=== PATIENT | male | born 1965 | race Caucasian/White ===

== ENCOUNTER 2016-11-26 06:36 | Emergency (ER) | payer MEDICARE, MEDICAID ==
[~2016-11-26] VITALS: Ht 182.9 cm; Wt 108.0 kg
[~2016-11-26 06:36] MED LIST: ALPR0.2582 PO; AMIT25TA9 PO; QUET25TA PO; SEROQUEL; VIC GT; XANAX
[2016-11-26] MEDS ORDERED: MORPHINE SULFATE 4 MG/ML CPJ (NOT FOR IM USE) IV ONE ×2 (07:15→09:15)
[2016-11-26] MEDS ORDERED: FAMOTIDINE 20MG/2ML VIAL IV ONE (07:15)
[2016-11-26] MEDS ORDERED: DIPHENHYDRAMINE 50MG/ML VIAL IV ONE (07:15)
[2016-11-26] MEDS ORDERED: ONDANSETRON HCL 4MG/2ML VIAL IV ONE (07:15)
[2016-11-26] MEDS ORDERED: SODIUM CHLORIDE 0.9% 1,000 ML IV ONE (07:15)
[2016-11-26 07:44] LABS: HEMATOCRIT. 39.5 % (42.0-52.0); HEMOGLOBIN. 13.1 g/dL (14.0-18.0); MEAN CORPUSCULAR HEMOGLOBIN 28.6 pg (28.0-32.0); MEAN CORPUSCULAR VOLUME 86.5 fL (80.0-94.0); PLATELET 414 x1000/uL (130-400); RED BLOOD CELL COUNT 4.57 mill/uL (4.7-6.1); RED CELL DISTRIBUTION WIDTH 15.5 % (11.6-14.6)
[2016-11-26 07:59] LABS: CARBON DIOXIDE 27 mEq/L (21-32); CHLORIDE 105 mEq/L (98-107)
[2016-11-26 08:05] LABS: PLATELET ESTIMATE SLIGHTLY INCREASED
[2016-11-26 08:23] LABS: CLARITY URINE CLEAR (CLEAR); COLOR URINE DARK YELLOW (YELLOW); GLUCOSE URINE NEGATIVE (NEGATIVE); KETONES URINE TRACE (NEGATIVE); LEUKOCYTE ESTERASE URINE TRACE (NEGATIVE); NITRITE URINE NEGATIVE (NEGATIVE); OCCULT BLOOD URINE NEGATIVE (NEGATIVE); PH URINE 5.5 (4.5-8.0); PROTEIN URINE TRACE (NEGATIVE); SPECIFIC GRAVITY URINE 1.017 (1.005-1.030)
[2016-11-26] MEDS ORDERED: DICYCLOMINE HCL 20MG TABLET PO SCH (09:15)
[2016-11-26] MEDS ORDERED: TETANUS, DIPHTHERIA, PERTUSSIS VAC/PF 0.5ML (>7YR OLD) IM ONE (09:30)
[2016-11-26] MEDS ORDERED: LIDOCAINE HCL 2%/EPINEPHRINE/PF 10 ML VIAL INFIL ONE (09:30)
[2016-11-26 10:15] VITALS: BP 144/88
== END 2016-11-26 13:10 | disposition home or self-care (01) ==
LOC: ER 07:12
DX: S01.81XA Laceration without foreign body of other part of head, initial encounter (principal); S02.82XA Fracture of other specified skull and facial bones, left side, initial encounter for closed fracture; R10.32 Left lower quadrant pain; R39.15 Urgency of urination; I10 Essential (primary) hypertension; Z90.81 Acquired absence of spleen; Y04.0XXA Assault by unarmed brawl or fight, initial encounter; Y93.89 Activity, other specified; Y92.89 Other specified places as the place of occurrence of the external cause; Y99.8 Other external cause status
CPT/HCPCS: 12013; 36415; 70450; 70486; 74176; 80053; 81001; 85007; 85027; 87086; 90471; 90715; 96361; 96374; 96375; 99285; C1893; J1200; J2270; J2405; J3490; J7030

== ENCOUNTER 2017-12-12 21:21 | Emergency (ER) | payer MEDICARE, MEDICAID ==
[~2017-12-12] VITALS: Ht 180.3 cm; Wt 82.0 kg
[~2017-12-12 21:21] MED LIST changes: +ALPR0.25 PO; -ALPR0.2582 PO; +AMLO10TA4 PO; +CLON0.1T PO; +METO-539 PO
[2017-12-12] MEDS ORDERED: KETOROLAC 30MG/ML VIAL IV STA (22:19)
[2017-12-12 23:11] LABS: BASOPHILS % 0.8 % (0.0-2.0); EOSINOPHILS % 0.5 % (0.0-5.0); HEMATOCRIT. 40.3 % (42.0-52.0); HEMOGLOBIN. 13.6 g/dL (14.0-18.0); LYMPHOCYTES % 23.7 % (20.0-50.0); MEAN CORPUSCULAR HEMOGLOBIN 29.7 pg (28.0-32.0); MEAN PLATELET VOLUME 9.3 fl (7.4-10.4); MONOCYTES % 9.2 % (2.0-8.0); NEUTROPHILS % 65.8 % (40.0-76.0); PLATELET 362 x1000/uL (130-400); RED BLOOD CELL COUNT 4.58 mill/uL (4.7-6.1); RED CELL DISTRIBUTION WIDTH 14.9 % (11.6-14.6)
[2017-12-12 23:17] LABS: CHLORIDE 106 mEq/L (98-107); INR 1.1; PROTHROMBIN TIME 11.1 sec (9.4-11.6)
[2017-12-12 23:21] LABS: ETHANOL BLOOD < 10 mg/dL
[2017-12-13] MEDS ORDERED: DIPHENHYDRAMINE 50MG/ML VIAL ONE (00:59)
[2017-12-13] MEDS ORDERED: DIPHENHYDRAMINE 50MG CAPSULE PO ONE (01:15)
[2017-12-13] MEDS ORDERED: DIPHENHYDRAMINE 50MG/ML VIAL IV ONE (01:30)
[2017-12-13 02:57] VITALS: BP 128/67
== END 2017-12-13 03:12 | disposition home or self-care (01) ==
LOC: ER 22:29 → CANBEDREQ 12-13 04:03
DX: R51 Headache (principal); R53.1 Weakness; R42 Dizziness and giddiness; I10 Essential (primary) hypertension; Z86.73 Personal history of transient ischemic attack (TIA), and cerebral infarction without residual deficits
CPT/HCPCS: 36415; 70450; 71045; 80053; 84443; 84484; 85025; 85610; 93005; 96374; 96375; 99285; G0482; J1200; J1885

== ENCOUNTER 2018-01-05 20:10 | Emergency (ER) | payer MEDICARE, MEDICAID ==
[~2018-01-05] VITALS: Ht 182.9 cm; Wt 91.0 kg
[2018-01-05] MEDS ORDERED: IOHEXOL-350 100 ML BOTTLE ONE (20:53)
[2018-01-05] MEDS ORDERED: ASPIRIN 81MG TABLET PO ONE (21:30)
[2018-01-05 21:56] LABS: BASOPHILS % 0.7 % (0.0-2.0); EOSINOPHILS % 0.2 % (0.0-5.0); HEMATOCRIT. 38.7 % (42.0-52.0); HEMOGLOBIN. 12.9 g/dL (14.0-18.0); LYMPHOCYTES % 16.2 % (20.0-50.0); MEAN CORPUSCULAR HEMOGLOBIN 29.5 pg (28.0-32.0); MEAN CORPUSCULAR VOLUME 88.3 fL (80.0-94.0); MONOCYTES % 7.5 % (2.0-8.0); NEUTROPHILS % 75.4 % (40.0-76.0); PLATELET 353 x1000/uL (130-400); RED BLOOD CELL COUNT 4.38 mill/uL (4.7-6.1); RED CELL DISTRIBUTION WIDTH 14.7 % (11.6-14.6)
[2018-01-05 21:58] LABS: CHLORIDE 107 mEq/L (98-107)
[2018-01-05 22:01] LABS: PROTHROMBIN TIME 10.9 sec (9.4-11.6)
[2018-01-05 22:02] LABS: ETHANOL BLOOD < 10 mg/dL
[2018-01-05 22:05] LABS: LDL CHOLESTEROL 56 mg/dL (5-100)
[2018-01-06] MEDS ORDERED: DIPHENHYDRAMINE 50MG/ML VIAL IV ONE (00:45)
[2018-01-06 04:53] VITALS: BP 142/73
== END 2018-01-06 04:54 | disposition left against medical advice (07) ==
LOC: ER 20:10 → EDBEDREQTM 23:00 → EDBEDREQSVC 23:00 → EDBEDREQ 23:00 → CANRESERV 01-06 04:00 → ENRESERV 01-06 04:00 → ER 01-06 04:54 → CANBEDREQ 01-06 06:27
DX: I63.9 Cerebral infarction, unspecified (principal); I10 Essential (primary) hypertension; R00.0 Tachycardia, unspecified; D64.9 Anemia, unspecified; R07.89 Other chest pain; J45.909 Unspecified asthma, uncomplicated; I69.354 Hemiplegia and hemiparesis following cerebral infarction affecting left non-dominant side; Z93.3 Colostomy status
CPT/HCPCS: 36415; 70450; 71045; 80053; 82962; 83721; 84484; 85025; 85610; 93005; 96374; 99291; G0482; J1200; Q9967

== ENCOUNTER 2018-01-16 15:44 | Emergency (ER) | payer MEDICARE, MEDICAID ==
[~2018-01-16] VITALS: Ht 182.9 cm; Wt 95.0 kg
[2018-01-16 15:46] VITALS: BP 137/93
== END 2018-01-16 20:32 | disposition left against medical advice (07) ==
LOC: ER 15:44
DX: Z53.21 Procedure and treatment not carried out due to patient leaving prior to being seen by health care provider (principal); I10 Essential (primary) hypertension; E11.9 Type 2 diabetes mellitus without complications; Z86.73 Personal history of transient ischemic attack (TIA), and cerebral infarction without residual deficits

== ENCOUNTER 2018-12-09 03:12 | Emergency (ER) | payer MEDICARE, MEDICAID ==
[~2018-12-09] VITALS: Ht 182.9 cm; Wt 97.0 kg
[2018-12-09] MEDS ORDERED: ONDANSETRON HCL 4MG/2ML INJ IV STA (04:31)
[2018-12-09] MEDS ORDERED: MORPHINE SULFATE 4 MG/ML CPJ (NOT FOR IM USE) IV STA (04:31)
[2018-12-09 04:48] LABS: BASOPHILS % 1.2 % (0.0-2.0); EOSINOPHILS % 1.5 % (0.0-5.0); HEMOGLOBIN. 13.2 g/dL (14.0-18.0); LYMPHOCYTES % 48.7 % (20.0-50.0); MEAN CORPUSCULAR HEMOGLOBIN 30.2 pg (28.0-32.0); MEAN CORPUSCULAR VOLUME 88.9 fL (80.0-94.0); MEAN PLATELET VOLUME 9.5 fl (7.4-10.4); MONOCYTES % 8.6 % (2.0-8.0); PLATELET 411 x1000/uL (130-400); RED BLOOD CELL COUNT 4.39 mill/uL (4.7-6.1); RED CELL DISTRIBUTION WIDTH 14.5 % (11.6-14.6)
[2018-12-09 04:54] LABS: CHLORIDE 107 mEq/L (98-107)
[2018-12-09] MEDS ORDERED: DIPHENHYDRAMINE 50MG/ML VIAL IV ONE (05:30)
[2018-12-09 06:14] VITALS: BP 138/72
== END 2018-12-09 06:19 | disposition home or self-care (01) ==
LOC: ER 03:12
DX: I10 Essential (primary) hypertension (principal)
CPT/HCPCS: 36415; 70450; 71045; 80053; 83880; 84484; 85025; 93005; 96374; 96375; 99284; J1200; J2270; J2405

== ENCOUNTER 2019-04-15 18:57 | Inpatient (IN) | payer MEDICARE, MEDICAID ==
[~2019-04-15] VITALS: Ht 182.9 cm; Wt 84.2 kg
[2019-04-15 20:36] LABS: *AMPHETAMINES SCREEN URINE NEGATIVE (NEGATIVE); *BARBITURATES SCREEN URINE NEGATIVE (NEGATIVE); *BENZODIAZEPINES SCREEN URINE PRESUMTIVE POSITIVE (NEGATIVE); *COCAINE SCREEN URINE NEGATIVE (NEGATIVE); CANNABINOID URINE SCREEN NEGATIVE (NEGATIVE); PHENCYCLIDINE URINE SCREEN NEGATIVE (NEGATIVE)
[2019-04-15 20:37] LABS: METHADONE URINE SCREEN NEGATIVE (NEGATIVE); OPIATES URINE SCREEN NEGATIVE (NEGATIVE)
[2019-04-15] MEDS ORDERED: ASPIRIN 325MG EC TABLET PO ONE (20:45)
[2019-04-15 21:06] LABS: CHLORIDE 109 mEq/L (98-107); EOSINOPHILS % 1.3 % (0.0-5.0); HEMOGLOBIN. 11.4 g/dL (14.0-18.0); LYMPHOCYTES % 40.3 % (20.0-50.0); MEAN CORPUSCULAR HEMOGLOBIN 29.9 pg (28.0-32.0); MEAN CORPUSCULAR VOLUME 89.4 fL (80.0-94.0); MEAN PLATELET VOLUME 9.3 fl (7.4-10.4); MONOCYTES % 7.3 % (2.0-8.0); NEUTROPHILS % 50.1 % (40.0-76.0); PLATELET 413 x1000/uL (130-400); RED BLOOD CELL COUNT 3.81 mill/uL (4.7-6.1); RED CELL DISTRIBUTION WIDTH 15.3 % (11.6-14.6)
[2019-04-15 21:08] LABS: INR 1.1; PARTIAL THROMBOPLASTIN TIME 26.4 sec (23.4-31.0)
[2019-04-15 21:10] LABS: ETHANOL BLOOD < 10 mg/dL
[2019-04-15 21:13] LABS: LDL CHOLESTEROL 72 mg/dL (5-100)
[2019-04-15] MEDS ORDERED: DIPHENHYDRAMINE 50MG/ML VIAL IV ONE (21:30)
[2019-04-15] MEDS ORDERED: IPRATROPIUM/ALBUTEROL 0.5-3(2.5)MG/3ML NEB NEB PRN (22:30)
[2019-04-15] MEDS ORDERED: CLONIDINE 0.1MG TABLET PO PRN (22:30)
[2019-04-15] MEDS ORDERED: ONDANSETRON HCL 4MG/2ML INJ IV PRN (22:30)
[2019-04-15] MEDS ORDERED: MAGNESIUM/ALUMINUM HYDROXIDE/SIMETHICONE 30ML UDC PO PRN (22:30)
[2019-04-15] MEDS ORDERED: DOCUSATE SODIUM 100MG CAPSULE PO PRN (22:30)
[2019-04-15] MEDS ORDERED: ZOLPIDEM TARTRATE 5MG TABLET PO PRN (22:30)
[2019-04-15] MEDS ORDERED: NITROGLYCERIN 0.4MG TABLET SL SL PRN (22:30)
[2019-04-15] MEDS ORDERED: ENOXAPARIN 40MG/0.4ML SYR SUBCUT SCH (22:30)
[2019-04-15] MEDS ORDERED: GUAIFENESIN 200MG/10ML SUGAR FREE UDC PO PRN (22:30)
[2019-04-15] MEDS ORDERED: LORAZEPAM 0.5MG TABLET PO PRN (22:30)
[2019-04-15] MEDS ORDERED: ACETAMINOPHEN 325MG TABLET PO PRN (22:30)
[2019-04-15] MEDS ORDERED: BUTALBITAL/ACETAMINOPHEN/CAFFEINE 50/325/40MG TABLET PO PRN (22:30)
[2019-04-15] MEDS ORDERED: DIPHENHYDRAMINE 50MG/ML VIAL IV PRN (22:30)
[2019-04-15] MEDS ORDERED: KETOROLAC 15MG/ML VIAL IV PRN (22:35)
[2019-04-15] MEDS ORDERED: IOHEXOL-350 100 ML BOTTLE ONE (22:37)
[2019-04-15 22:48] LABS: T4 FREE 0.99 ng/dL (0.76-1.46)
[2019-04-15 23:02] LABS: FOLIC ACID (FOLATE) SERUM 14.9 ng/mL (>5.38)
[2019-04-16 00:05] VITALS: BP 134/86
[2019-04-16] MEDS ORDERED: ZOLPIDEM TARTRATE 5MG TABLET PO PRN (00:15)
[2019-04-16] MEDS ORDERED: BUTALBITAL/ACETAMINOPHEN/CAFFEINE 50/325/40MG TABLET PO PRN (00:15)
[2019-04-16] MEDS ORDERED: DIPHENHYDRAMINE 50MG/ML VIAL IV PRN (02:29)
[2019-04-16] MEDS ORDERED: DOCUSATE SODIUM 100MG CAPSULE PO PRN (02:31)
[2019-04-16] MEDS ORDERED: CLONIDINE 0.1MG TABLET PO PRN (02:31)
[2019-04-16] MEDS ORDERED: IPRATROPIUM/ALBUTEROL 0.5-3(2.5)MG/3ML NEB NEB PRN (02:32)
[2019-04-16] MEDS ORDERED: GUAIFENESIN 200MG/10ML SUGAR FREE UDC PO PRN (02:32)
[2019-04-16] MEDS ORDERED: KETOROLAC 15MG/ML VIAL IV PRN ×2 (02:35)
[2019-04-16] MEDS ORDERED: LORAZEPAM 0.5MG TABLET PO PRN (02:35)
[2019-04-16] MEDS ORDERED: MAGNESIUM/ALUMINUM HYDROXIDE/SIMETHICONE 30ML UDC PO PRN (02:35)
[2019-04-16] MEDS ORDERED: ONDANSETRON HCL 4MG/2ML INJ IV PRN (02:36)
[2019-04-16] MEDS ORDERED: NITROGLYCERIN 0.4MG TABLET SL SL PRN (02:45)
[2019-04-16] MEDS ORDERED: ACETAMINOPHEN 325MG TABLET PO PRN (02:45)
[2019-04-16] MEDS ORDERED: FAMOTIDINE 20MG TABLET PO SCH ×2 (09:00)
[2019-04-16] MEDS ORDERED: CLOPIDOGREL 75MG TABLET PO SCH ×2 (09:00)
[2019-04-16] MEDS ORDERED: ENOXAPARIN 40MG/0.4ML SYR SUBCUT SCH (09:00)
== END 2019-04-16 04:45 | disposition left against medical advice (07) | DRG 103 ==
LOC: ER 18:57 → 6WST 21:52 → EDBEDREQ 21:54 → EDBEDREQTM 21:54 → SUPCPDRO 22:19 → ENRESERV 23:02 → CANBEDREQ 23:10 → ENRESERV 23:21 → ER 04-16 00:05
PROVIDERS: ADMIT Internal Medicine; ATTEND Internal Medicine
DX: R51 Headache (principal); G81.94 Hemiplegia, unspecified affecting left nondominant side; I10 Essential (primary) hypertension; Z53.29 Procedure and treatment not carried out because of patient's decision for other reasons; F41.9 Anxiety disorder, unspecified; Z90.89 Acquired absence of other organs; Z79.899 Other long term (current) drug therapy; Z86.73 Personal history of transient ischemic attack (TIA), and cerebral infarction without residual deficits
CPT/HCPCS: 36415; 70496; 70498; 71045; 80061; 80305; 80320; 82607; 82746; 82962; 83036; 83540; 83550; 83721; 84439; 84443; 84484; 93005; 99285; J1200; J1885; Q9967; G0480

== ENCOUNTER 2019-07-11 22:29 | Inpatient (IN) | payer MEDICARE, MEDICAID ==
[~2019-07-11] VITALS: Ht 182.9 cm; Wt 82.3 kg
[2019-07-11 23:33] LABS: HEMATOCRIT. 36.8 % (42.0-52.0); HEMOGLOBIN. 12.1 g/dL (14.0-18.0); MEAN CORPUSCULAR HEMOGLOBIN 28.6 pg (28.0-32.0); MEAN CORPUSCULAR VOLUME 87.1 fL (80.0-94.0); MEAN PLATELET VOLUME 8.8 fl (7.4-10.4); PLATELET 363 x1000/uL (130-400); RED BLOOD CELL COUNT 4.22 mill/uL (4.7-6.1); RED CELL DISTRIBUTION WIDTH 15.1 % (11.6-14.6)
[2019-07-11 23:38] LABS: CHLORIDE 108 mEq/L (98-107)
[2019-07-11 23:39] LABS: INR 0.9; PROTHROMBIN TIME 9.7 sec (9.6-11.0)
[2019-07-11 23:42] LABS: ETHANOL BLOOD < 10 mg/dL
[2019-07-11 23:46] LABS: LDL CHOLESTEROL 119 mg/dL (5-100)
[2019-07-12 00:04] LABS: NUCLEATED RED BLOOD CELLS 1 /100 WBC; PLATELET ESTIMATE NORMAL
[2019-07-12] MEDS ORDERED: DIPHENHYDRAMINE 25MG CAPSULE PO ONE (00:30)
[2019-07-12] MEDS ORDERED: ACETAMINOPHEN 500MG TABLET PO ONE (00:30)
[2019-07-12] MEDS ORDERED: MAGNESIUM/ALUMINUM HYDROXIDE/SIMETHICONE 30ML UDC PO PRN (01:00)
[2019-07-12] MEDS ORDERED: ACETAMINOPHEN 325MG TABLET PO PRN (01:00)
[2019-07-12] MEDS ORDERED: ONDANSETRON HCL 4MG/2ML INJ IV PRN (01:00)
[2019-07-12 02:55] LABS: CLARITY URINE CLEAR (CLEAR); COLOR URINE YELLOW (YELLOW); KETONES URINE NEGATIVE (NEGATIVE); LEUKOCYTE ESTERASE URINE NEGATIVE (NEGATIVE); NITRITE URINE NEGATIVE (NEGATIVE); OCCULT BLOOD URINE NEGATIVE (NEGATIVE); PROTEIN URINE NEGATIVE (NEGATIVE); SPECIFIC GRAVITY URINE 1.025 (1.005-1.030)
[2019-07-12] MEDS: KETOROLAC 30MG/ML VIAL IV PRN ×3 (02:56→21:28)
[2019-07-12 03:20] LABS: *AMPHETAMINES SCREEN URINE NEGATIVE (NEGATIVE); *BARBITURATES SCREEN URINE NEGATIVE (NEGATIVE); *BENZODIAZEPINES SCREEN URINE PRESUMTIVE POSITIVE (NEGATIVE); *COCAINE SCREEN URINE NEGATIVE (NEGATIVE)
[2019-07-12 03:21] LABS: CANNABINOID URINE SCREEN NEGATIVE (NEGATIVE); METHADONE URINE SCREEN NEGATIVE (NEGATIVE); OPIATES URINE SCREEN PRESUMTIVE POSITIVE (NEGATIVE); PHENCYCLIDINE URINE SCREEN NEGATIVE (NEGATIVE)
[2019-07-12] MEDS: DIPHENHYDRAMINE 50MG/ML VIAL IV PRN ×4 (05:01→21:30)
[2019-07-12] MEDS: ASPIRIN 81MG EC TABLET PO SCH (09:32)
[2019-07-12] MEDS: CLOPIDOGREL 75MG TABLET PO SCH (09:32)
[2019-07-12 13:31] VITALS: BP 118/58
[2019-07-12] MEDS ORDERED: INFLUENZA VIRUS VACCINE(AFLURIA) 0.5ML SYR IM ONE (15:30)
[2019-07-12] MEDS ORDERED: PNEUMOCOCCAL 23-VAL P-SAC VAC 0.5 ML IM ONE (15:30)
[2019-07-12] MEDS: FAMOTIDINE 20MG TABLET PO SCH ×2 (15:41→21:25)
[2019-07-12] MEDS: SODIUM CHLORIDE 0.9% INJ 3ML FLUSH IVF SCH ×2 (15:42→21:38)
[2019-07-12] MEDS: ENOXAPARIN 40MG/0.4ML SYR SUBCUT SCH (15:42)
[2019-07-12 16:00] VITALS: BP 128/86
[2019-07-12 20:00] VITALS: BP 133/78
[2019-07-13] VITALS: BP 105/60
[2019-07-13] MEDS: DIPHENHYDRAMINE 50MG/ML VIAL IV PRN ×3 (02:18→13:46)
[2019-07-13 04:00] VITALS: BP 131/61
[2019-07-13] MEDS: SODIUM CHLORIDE 0.9% INJ 3ML FLUSH IVF SCH ×2 (05:56→13:45)
[2019-07-13 08:00] VITALS: BP_SYST 115; BP_SYST 99; BP_DIAS 48; BP_DIAS 64
[2019-07-13] MEDS: FAMOTIDINE 20MG TABLET PO SCH (08:18)
[2019-07-13] MEDS: CLOPIDOGREL 75MG TABLET PO SCH (08:18)
[2019-07-13] MEDS: KETOROLAC 30MG/ML VIAL IV PRN (08:18)
[2019-07-13] MEDS: ASPIRIN 81MG EC TABLET PO SCH (08:18)
[2019-07-13] MEDS: ENOXAPARIN 40MG/0.4ML SYR SUBCUT SCH (08:19)
[2019-07-13 12:00] VITALS: BP 115/64
[2019-07-13 13:06] VITALS: BP 115/64
== END 2019-07-13 15:55 | disposition home or self-care (01) | DRG 64 ==
LOC: ER 22:29 → 5WST 07-12 00:42 → EDBEDREQDT 07-12 00:45 → EDBEDREQTM 07-12 00:45 → EDBEDREQ 07-12 00:45 → EDBEDREQSVC 07-12 00:45 → ENRESERV 07-12 11:25 → 5WST 07-12 13:15
PROVIDERS: ADMIT Internal Medicine; ATTEND Internal Medicine
DX: I63.9 Cerebral infarction, unspecified (principal); G92 Toxic encephalopathy; I69.354 Hemiplegia and hemiparesis following cerebral infarction affecting left non-dominant side; E78.00 Pure hypercholesterolemia, unspecified; I10 Essential (primary) hypertension; Z79.02 Long term (current) use of antithrombotics/antiplatelets; Z82.49 Family history of ischemic heart disease and other diseases of the circulatory system; Z83.3 Family history of diabetes mellitus; Z93.3 Colostomy status; Z79.899 Other long term (current) drug therapy; Z79.82 Long term (current) use of aspirin
CPT/HCPCS: 36415; 70551; 71045; 80053; 80061; 80305; 80320; 81003; 82962; 83721; 84484; 85025; 90471; 90686; 90732; 93005; 93880; 96372; 96374; 96375; 97162; 97166; 99291; J1200; J1650; J1885; Q0163; G0480

== ENCOUNTER 2019-11-06 18:13 | Emergency (ER) | payer MEDICARE, MEDICAID ==
[~2019-11-06] VITALS: Ht 167.6 cm; Wt 76.0 kg
[2019-11-06] MEDS ORDERED: KETOROLAC 30MG/ML VIAL IV STA (18:48)
[2019-11-06] MEDS ORDERED: SODIUM CHLORIDE 0.9% 1,000 ML IV ONE (18:48)
[2019-11-06] MEDS ORDERED: DIPHENHYDRAMINE 25MG CAPSULE PO ONE (19:00)
[2019-11-06 19:19] LABS: CLARITY URINE CLEAR (CLEAR); COLOR URINE YELLOW (YELLOW); KETONES URINE NEGATIVE (NEGATIVE); LEUKOCYTE ESTERASE URINE NEGATIVE (NEGATIVE); NITRITE URINE NEGATIVE (NEGATIVE); OCCULT BLOOD URINE NEGATIVE (NEGATIVE); PH URINE 7.5 (4.5-8.0); PROTEIN URINE NEGATIVE (NEGATIVE); SPECIFIC GRAVITY URINE 1.015 (1.005-1.030); UROBILINOGEN URINE 0.2 E.U./dL (0.2-1.0)
[2019-11-06 19:22] LABS: BASOPHILS % 0.5 % (0.0-2.0); EOSINOPHILS % 1.8 % (0.0-5.0); HEMATOCRIT. 37.6 % (42.0-52.0); HEMOGLOBIN. 12.7 g/dL (14.0-18.0); MEAN CORPUSCULAR HEMOGLOBIN 29.4 pg (28.0-32.0); MEAN PLATELET VOLUME 8.9 fl (7.4-10.4); NEUTROPHILS % 47.7 % (40.0-76.0); PLATELET 326 x1000/uL (130-400); RED BLOOD CELL COUNT 4.32 mill/uL (4.7-6.1); RED CELL DISTRIBUTION WIDTH 15.2 % (11.6-14.6)
[2019-11-06 19:27] LABS: CHLORIDE 106 mEq/L (98-107)
[2019-11-06 19:28] LABS: INR 0.9; PROTHROMBIN TIME 10.3 sec (9.6-11.0)
[2019-11-06 22:29] VITALS: BP 141/89
== END 2019-11-06 22:33 | disposition home or self-care (01) ==
LOC: ER 18:13
DX: R10.84 Generalized abdominal pain (principal); R11.10 Vomiting, unspecified; I10 Essential (primary) hypertension; Z86.73 Personal history of transient ischemic attack (TIA), and cerebral infarction without residual deficits; Z98.890 Other specified postprocedural states; Z79.899 Other long term (current) drug therapy
CPT/HCPCS: 36415; 74176; 80053; 81003; 83605; 83690; 85025; 85610; 99284; J1885; J7030; Q0163

== ENCOUNTER 2020-04-05 20:22 | Emergency (ER) | payer MEDICARE, MEDICAID ==
[~2020-04-05] VITALS: Ht 182.9 cm; Wt 91.0 kg
[2020-04-05] MEDS ORDERED: ONDANSETRON HCL 4MG/2ML INJ IV STA (21:08)
[2020-04-05] MEDS ORDERED: KETOROLAC 30MG/ML VIAL IV STA (21:08)
[2020-04-05] MEDS ORDERED: SODIUM CHLORIDE 0.9% 1,000 ML IV ONE (21:15)
[2020-04-05 21:59] LABS: BASOPHILS % 0.7 % (0.0-2.0); EOSINOPHILS % 0.5 % (0.0-5.0); HEMATOCRIT. 37.1 % (42.0-52.0); HEMOGLOBIN. 12.5 g/dL (14.0-18.0); LYMPHOCYTES % 23.6 % (20.0-50.0); MEAN CORPUSCULAR HEMOGLOBIN 30.2 pg (28.0-32.0); MEAN CORPUSCULAR VOLUME 89.5 fL (80.0-94.0); MEAN PLATELET VOLUME 8.7 fl (7.4-10.4); MONOCYTES % 4.7 % (2.0-8.0); NEUTROPHILS % 70.5 % (40.0-76.0); PLATELET 306 x1000/uL (130-400); RED BLOOD CELL COUNT 4.14 mill/uL (4.7-6.1); RED CELL DISTRIBUTION WIDTH 14.7 % (11.6-14.6)
[2020-04-05 22:05] LABS: CHLORIDE 107 mEq/L (98-107)
[2020-04-05 22:07] LABS: PROTHROMBIN TIME 10.6 sec (9.6-11.0)
[2020-04-06 01:11] VITALS: BP 147/92
[2020-04-06 01:59] LABS: CLARITY URINE CLEAR (CLEAR); COLOR URINE YELLOW (YELLOW); KETONES URINE NEGATIVE (NEGATIVE); LEUKOCYTE ESTERASE URINE NEGATIVE (NEGATIVE); NITRITE URINE NEGATIVE (NEGATIVE); OCCULT BLOOD URINE NEGATIVE (NEGATIVE); PROTEIN URINE NEGATIVE (NEGATIVE); SPECIFIC GRAVITY URINE 1.015 (1.005-1.030); UROBILINOGEN URINE 0.2 E.U./dL (0.2-1.0)
== END 2020-04-06 01:37 | disposition home or self-care (01) ==
LOC: ER 20:22
DX: R10.9 Unspecified abdominal pain (principal); R11.2 Nausea with vomiting, unspecified; E78.00 Pure hypercholesterolemia, unspecified; I10 Essential (primary) hypertension; Z79.899 Other long term (current) drug therapy; Z88.6 Allergy status to analgesic agent; Z86.73 Personal history of transient ischemic attack (TIA), and cerebral infarction without residual deficits
CPT/HCPCS: 36415; 74176; 80053; 81003; 83690; 85025; 85610; 96361; 96374; 99285; J1885; J2405; J7030

== ENCOUNTER 2020-12-09 05:15 | Emergency (ER) | payer MEDICARE, MEDICAID ==
[~2020-12-09] VITALS: Ht 182.9 cm; Wt 91.6 kg
[2020-12-09] MEDS ORDERED: MAGNESIUM/ALUMINUM HYDROXIDE/SIMETHICONE 30ML UDC PO STA (06:19)
[2020-12-09] MEDS ORDERED: KETOROLAC 60MG/2ML VIAL IM STA (06:19)
[2020-12-09] MEDS ORDERED: DIPHENHYDRAMINE 25MG CAPSULE PO ONE (07:00)
[2020-12-09 07:43] LABS: CLARITY URINE CLEAR (CLEAR); COLOR URINE YELLOW (YELLOW); KETONES URINE TRACE (NEGATIVE); LEUKOCYTE ESTERASE URINE NEGATIVE (NEGATIVE); NITRITE URINE NEGATIVE (NEGATIVE); OCCULT BLOOD URINE NEGATIVE (NEGATIVE); PH URINE 5.5 (4.5-8.0); PROTEIN URINE NEGATIVE (NEGATIVE); SPECIFIC GRAVITY URINE 1.013 (1.005-1.030); UROBILINOGEN URINE 0.2 E.U./dL (0.2-1.0)
[2020-12-09 08:27] LABS: BASOPHILS % 0.9 % (0.0-2.0); EOSINOPHILS % 0.9 % (0.0-5.0); HEMATOCRIT. 37.6 % (42.0-52.0); LYMPHOCYTES % 35.5 % (20.0-50.0); MEAN CORPUSCULAR HEMOGLOBIN 30.3 pg (28.0-32.0); MEAN CORPUSCULAR VOLUME 87.3 fL (80.0-94.0); MEAN PLATELET VOLUME 8.8 fl (7.4-10.4); MONOCYTES % 7.4 % (2.0-8.0); NEUTROPHILS % 55.3 % (40.0-76.0); PLATELET 378 x1000/uL (130-400); RED CELL DISTRIBUTION WIDTH 14.6 % (11.6-14.6)
[2020-12-09 08:35] LABS: CHLORIDE 107 mEq/L (98-107)
[2020-12-09] MEDS ORDERED: IBUP-2029 MT (10:25)
[2020-12-09 10:37] VITALS: BP 132/82
== END 2020-12-09 10:38 | disposition home or self-care (01) ==
LOC: ER 05:15
DX: R10.33 Periumbilical pain (principal); R11.2 Nausea with vomiting, unspecified; I10 Essential (primary) hypertension; Z79.899 Other long term (current) drug therapy
CPT/HCPCS: 36415; 74176; 80053; 81003; 83690; 85025; 96372; 99284; J1885; 99285; Q0163

== ENCOUNTER 2021-03-29 07:10 | Emergency (ER) | payer MEDICARE, MEDICAID ==
[~2021-03-29] VITALS: Ht 182.9 cm; Wt 87.0 kg
[~2021-03-29 07:10] MED LIST changes: +IBUP-2029 MT
[2021-03-29] MEDS ORDERED: MORPHINE SULFATE 4 MG/ML CPJ (NOT FOR IM USE) IV STA (07:52)
[2021-03-29] MEDS ORDERED: DIPHENHYDRAMINE 50MG/ML VIAL IV ONE (10:45)
[2021-03-29 10:53] LABS: BASOPHILS % 1.2 % (0.0-2.0); EOSINOPHILS % 2.9 % (0.0-5.0); HEMOGLOBIN. 10.6 g/dL (14.0-18.0); LYMPHOCYTES % 41.5 % (20.0-50.0); MEAN CORPUSCULAR HEMOGLOBIN 29.4 pg (28.0-32.0); MEAN CORPUSCULAR VOLUME 89.3 fL (80.0-94.0); MEAN PLATELET VOLUME 8.6 fl (7.4-10.4); MONOCYTES % 8.9 % (2.0-8.0); NEUTROPHILS % 45.5 % (40.0-76.0); PLATELET 460 x1000/uL (130-400); RED BLOOD CELL COUNT 3.59 mill/uL (4.7-6.1); RED CELL DISTRIBUTION WIDTH 17.7 % (11.6-14.6)
[2021-03-29 11:02] LABS: CHLORIDE 111 mEq/L (98-107)
[2021-03-29] MEDS ORDERED: HYDR-4001 MT (12:29)
[2021-03-29] MEDS ORDERED: KETOROLAC 15MG/ML VIAL IV ONE (12:30)
[2021-03-29] MEDS ORDERED: MORPHINE SULFATE 2 MG/ML CPJ (NOT FOR IM USE) IV ONE (13:45)
[2021-03-29 13:55] VITALS: BP 115/76
== END 2021-03-29 15:10 | disposition home or self-care (01) ==
LOC: ER 07:10
DX: R10.9 Unspecified abdominal pain (principal); I69.30 Unspecified sequelae of cerebral infarction; I10 Essential (primary) hypertension; Z88.5 Allergy status to narcotic agent; Z79.899 Other long term (current) drug therapy; Z98.890 Other specified postprocedural states
CPT/HCPCS: 36415; 71045; 80053; 80375; 83880; 84484; 85025; 93005; 96374; 96375; 96376; 99285; J1200; J2270; J1885

== ENCOUNTER 2021-05-14 02:21 | Inpatient (IN) | payer MEDICARE, MEDICAID ==
[~2021-05-14] VITALS: Ht 182.9 cm; Wt 89.4 kg
[~2021-05-14 02:21] MED LIST changes: +HYDR-4001 MT
[2021-05-14] MEDS ORDERED: ONDANSETRON HCL 4MG/2ML INJ IV STA (02:46)
[2021-05-14] MEDS ORDERED: MORPHINE SULFATE 4 MG/ML CPJ (NOT FOR IM USE) IV STA (02:46)
[2021-05-14] MEDS ORDERED: DIPHENHYDRAMINE 50MG/ML VIAL IV ONE (03:45)
[2021-05-14 03:53] LABS: BASOPHILS % 0.6 % (0.0-2.0); EOSINOPHILS % 1.8 % (0.0-5.0); HEMATOCRIT. 36.3 % (42.0-52.0); LYMPHOCYTES % 42.5 % (20.0-50.0); MEAN CORPUSCULAR HEMOGLOBIN 28.9 pg (28.0-32.0); MEAN CORPUSCULAR VOLUME 87.7 fL (80.0-94.0); MEAN PLATELET VOLUME 8.7 fl (7.4-10.4); MONOCYTES % 10.8 % (2.0-8.0); NEUTROPHILS % 44.3 % (40.0-76.0); PLATELET 347 x1000/uL (130-400); RED BLOOD CELL COUNT 4.13 mill/uL (4.7-6.1); RED CELL DISTRIBUTION WIDTH 15.2 % (11.6-14.6)
[2021-05-14 03:58] LABS: CHLORIDE 108 mEq/L (98-107)
[2021-05-14] MEDS ORDERED: ASPIRIN 325MG TABLET PO ONE (05:45)
[2021-05-14] MEDS ORDERED: MAGNESIUM/ALUMINUM HYDROXIDE/SIMETHICONE 30ML UDC PO PRN (07:15)
[2021-05-14] MEDS ORDERED: CLONIDINE 0.1MG TABLET PO PRN (07:15)
[2021-05-14] MEDS ORDERED: DOCUSATE SODIUM 100MG CAPSULE PO PRN (07:15)
[2021-05-14] MEDS ORDERED: ONDANSETRON HCL 4MG/2ML INJ IV PRN (07:15)
[2021-05-14] MEDS ORDERED: GUAIFENESIN 200MG/10ML SUGAR FREE UDC PO PRN (07:15)
[2021-05-14] MEDS ORDERED: KETOROLAC 15MG/ML VIAL IV PRN (10:30)
[2021-05-14] MEDS ORDERED: DIPHENHYDRAMINE 25MG CAPSULE PO PRN (10:30)
[2021-05-14] MEDS: ASPIRIN 81MG EC TABLET PO SCH (10:40)
[2021-05-14] MEDS: AMLODIPINE 10MG TABLET PO SCH ×2 (10:40→10:41)
[2021-05-14] MEDS ORDERED: NALOXONE HCL 0.4MG/ML VIAL IV PRN (14:15)
[2021-05-14] MEDS: HYDROMORPHONE HCL/PF 2MG/ML CPJ IV PRN ×2 (17:07→23:25)
[2021-05-14 17:20] VITALS: BP 132/51
[2021-05-14] MEDS ORDERED: CLOP-31 PO (17:48)
[2021-05-14] MEDS ORDERED: OMEP20CA14 PO (17:48)
[2021-05-14 18:24] VITALS: BP 132/51
[2021-05-14] MEDS ORDERED: INFLUENZA VACCINE 05/PF 0.5 ML SYRINGE IM ONE (19:00)
[2021-05-14 20:00] VITALS: BP 114/63
[2021-05-14] MEDS ORDERED: ATORVASTATIN CALCIUM 40MG TABLET PO SCH (21:00)
[2021-05-15] VITALS: BP 114/62
[2021-05-15 04:00] VITALS: BP 107/49
[2021-05-15] MEDS: HYDROMORPHONE HCL/PF 2MG/ML CPJ IV PRN (05:15)
[2021-05-15 08:00] VITALS: BP 111/59
[2021-05-15 08:25] LABS: BASOPHILS % 0.8 % (0.0-2.0); EOSINOPHILS % 3.4 % (0.0-5.0); HEMATOCRIT. 34.1 % (42.0-52.0); HEMOGLOBIN. 11.2 g/dL (14.0-18.0); LYMPHOCYTES % 47.3 % (20.0-50.0); MEAN CORPUSCULAR HEMOGLOBIN 29.2 pg (28.0-32.0); MEAN PLATELET VOLUME 8.9 fl (7.4-10.4); MONOCYTES % 11.4 % (2.0-8.0); NEUTROPHILS % 37.1 % (40.0-76.0); PLATELET 321 x1000/uL (130-400); RED BLOOD CELL COUNT 3.84 mill/uL (4.7-6.1); RED CELL DISTRIBUTION WIDTH 14.6 % (11.6-14.6)
[2021-05-15 08:34] LABS: CHLORIDE 106 mEq/L (98-107)
[2021-05-15 08:42] LABS: LDL CHOLESTEROL 114 mg/dL (5-100)
[2021-05-15 08:44] LABS: HDL CHOLESTEROL 39 mg/dL (40-59)
[2021-05-15] MEDS: AMLODIPINE 10MG TABLET PO SCH (09:27)
[2021-05-15] MEDS: ASPIRIN 81MG EC TABLET PO SCH (09:27)
== END 2021-05-15 11:50 | disposition home or self-care (01) | DRG 69 ==
LOC: ER 02:21 → MICUSO 05:42 → EDBEDREQTM 05:46 → EDBEDREQ 05:46 → 7EST 17:00
PROVIDERS: ADMIT Hospitalist; ATTEND Hospitalist
DX: G45.9 Transient cerebral ischemic attack, unspecified (principal); I69.934 Monoplegia of upper limb following unspecified cerebrovascular disease affecting left non-dominant side; F41.9 Anxiety disorder, unspecified; G89.29 Other chronic pain; I10 Essential (primary) hypertension; R10.9 Unspecified abdominal pain; Z82.49 Family history of ischemic heart disease and other diseases of the circulatory system; Z88.5 Allergy status to narcotic agent; Z88.8 Allergy status to other drugs, medicaments and biological substances
CPT/HCPCS: 36415; 70551; 71045; 80053; 80061; 84484; 85025; 93005; 99291; J1170; J1200; J1885; J2270; J2405; Q0163

== ENCOUNTER 2022-11-29 01:28 | Emergency (ER) | payer MEDICARE, MEDICAID ==
[~2022-11-29] VITALS: Ht 177.8 cm; Wt 95.5 kg
[~2022-11-29 01:28] MED LIST changes: +CLOP-31 PO; +OMEP20CA14 PO
[2022-11-29 01:59] VITALS: BP 145/89
[2022-11-29 12:13] LABS: BASOPHILS % 0.8 % (0.0-2.0); EOSINOPHILS % 1.9 % (0.0-5.0); HEMATOCRIT. 38.7 % (42.0-52.0); HEMOGLOBIN. 13.2 g/dL (14.0-18.0); LYMPHOCYTES % 40.5 % (20.0-50.0); MEAN CORPUSCULAR HEMOGLOBIN 29.9 pg (28.0-32.0); MEAN PLATELET VOLUME 9.1 fl (7.4-10.4); MONOCYTES % 9.9 % (2.0-8.0); NEUTROPHILS % 46.9 % (40.0-76.0); PLATELET 349 x1000/uL (130-400); RED BLOOD CELL COUNT 4.39 mill/uL (4.7-6.1); RED CELL DISTRIBUTION WIDTH 14.6 % (11.6-14.6)
[2022-11-29 12:20] LABS: CHLORIDE 108 mEq/L (98-107)
[2022-11-29] MEDS ORDERED: ONDA4TAB50 MT (13:57)
== END 2022-11-29 15:05 | disposition home or self-care (01) ==
LOC: ER 01:28
DX: K57.90 Diverticulosis of intestine, part unspecified, without perforation or abscess without bleeding (principal); R11.2 Nausea with vomiting, unspecified; I10 Essential (primary) hypertension; R51.9 Headache, unspecified; Z88.5 Allergy status to narcotic agent; Z79.899 Other long term (current) drug therapy; Z86.73 Personal history of transient ischemic attack (TIA), and cerebral infarction without residual deficits; Z98.890 Other specified postprocedural states
CPT/HCPCS: 36415; 74176; 80053; 85025; 99284

== ENCOUNTER 2023-08-10 01:27 | Emergency (ER) | payer BC, MEDICAID ==
[~2023-08-10] VITALS: Ht 182.9 cm; Wt 99.0 kg
[~2023-08-10 01:27] MED LIST changes: +ONDA4TAB50 MT
[2023-08-10 01:39] VITALS: BP 164/102; PULSE 101; RESP 18; TEMP 98; O2SAT 97
[2023-08-10 03:06] LABS: HEMATOCRIT. 39.7 % (42.0-52.0); HEMOGLOBIN. 13.3 g/dL (14.0-18.0); MEAN CORPUSCULAR HEMOGLOBIN 29.8 pg (28.0-32.0); MEAN CORPUSCULAR HGB CONC 33.6 g/dL (31.0-37.0); MEAN CORPUSCULAR VOLUME 88.5 fL (80.0-94.0); MEAN PLATELET VOLUME 8.9 fl (7.4-10.4); PLATELET 342 x1000/uL (130-400); RED BLOOD CELL COUNT 4.48 mill/uL (4.7-6.1); RED CELL DISTRIBUTION WIDTH 15.4 % (11.6-14.6); WHITE BLOOD COUNT 8.5 x1000/uL (4.5-11.0)
[2023-08-10 03:13] LABS: DIFFERENTIAL COMMENT 1
[2023-08-10 03:19] LABS: ALANINE AMINOTRANSFERASE 36 IU/L (10-49); ALBUMIN 4.9 g/dL (3.2-4.8); ASPARTATE AMINOTRANSFERASE 23 IU/L (<34); BILIRUBIN TOTAL 0.3 mg/dL (0.1-1.0); CALCIUM 9.4 mg/dL (8.7-10.4); CARBON DIOXIDE 24 mEq/L (21-32); CHLORIDE 105 mEq/L (98-107); CREATININE 0.8 mg/dL (0.6-1.3); GLUCOSE 112 mg/dL (70-105); POTASSIUM 3.4 mEq/L (3.5-5.1); PROTEIN TOTAL 7.7 g/dL (6.0-8.3); SODIUM 139 mEq/L (136-145); UREA NITROGEN BLOOD 9 mg/dL (9-23)
[2023-08-10 03:25] LABS: TROPONIN I HIGH SENSITIVITY < 4 ng/L (3.0-53)
[2023-08-10] MEDS ORDERED: ENALAPRIL 5MG TABLET PO SCH (03:30)
[2023-08-10] MEDS: LISINOPRIL 10MG TABLET PO NR (03:36)
[2023-08-10] MEDS: HYDROCODONE/ACETAMINOPHEN 5/325MG TABLET PO ONE (03:37)
[2023-08-10] MEDS ORDERED: IBUP-2029 MT (03:59)
[2023-08-10] MEDS: IBUPROFEN 600MG TABLET PO ONE (04:07)
[2023-08-10 05:07] LABS: PLATELET ESTIMATE NORMAL
== END 2023-08-10 04:59 | disposition home or self-care (01) ==
LOC: ER 02:46
DX: I10 Essential (primary) hypertension (principal); I69.30 Unspecified sequelae of cerebral infarction; G44.209 Tension-type headache, unspecified, not intractable; Z98.890 Other specified postprocedural states; Z88.5 Allergy status to narcotic agent
CPT/HCPCS: 36415; 71045; 80053; 83880; 84484; 85025; 93005; 99285

== ENCOUNTER 2024-11-09 22:24 | Emergency (ER) | payer MEDICARE, MEDICAID ==
[~2024-11-09] VITALS: Ht 175.3 cm; Wt 104.0 kg
[~2024-11-09 22:24] MED LIST changes: -ALPR0.25 PO; +ALPR1TAB2 MT; +AMLO-905 PO; -AMLO10TA4 PO; -HYDR-4001 MT; +QUET25TA MT; -QUET25TA PO; -SEROQUEL; -VIC GT; -XANAX
[2024-11-09 22:34] VITALS: O2SAT 93
[2024-11-09] MEDS ORDERED: ACETAMINOPHEN 1000MG/100ML 100 ML IV ONE (23:00)
[2024-11-10 00:04] LABS: CLARITY URINE CLEAR (CLEAR); COLOR URINE YELLOW (YELLOW); GLUCOSE URINE NEGATIVE (NEGATIVE); KETONES URINE NEGATIVE (NEGATIVE); LEUKOCYTE ESTERASE URINE NEGATIVE (NEGATIVE); NITRITE URINE NEGATIVE (NEGATIVE); OCCULT BLOOD URINE NEGATIVE (NEGATIVE); PH URINE 6.5 (4.5-8.0); PROTEIN URINE NEGATIVE (NEGATIVE); SPECIFIC GRAVITY URINE 1.007 (1.005-1.030); UROBILINOGEN URINE 0.2 E.U./dL (0.2-1.0)
[2024-11-10] MEDS: SODIUM CHLORIDE 0.9% 1,000 ML IV ONE (00:04)
[2024-11-10 00:05] LABS: *AMPHETAMINES SCREEN URINE NEGATIVE (NEGATIVE); *BARBITURATES SCREEN URINE NEGATIVE (NEGATIVE); *BENZODIAZEPINES SCREEN URINE PRESUMPTIVE POSITIVE (NEGATIVE); *COCAINE SCREEN URINE NEGATIVE (NEGATIVE); METHADONE URINE SCREEN NEGATIVE (NEGATIVE)
[2024-11-10] MEDS: TETANUS, DIPHTHERIA, PERTUSSIS VAC/PF 0.5ML (>10YR OLD) IM ONE (00:05)
[2024-11-10 00:06] LABS: CANNABINOID URINE SCREEN NEGATIVE (NEGATIVE); ECSTASY MDMA SCREEN URINE NEGATIVE (NEGATIVE); OPIATES URINE SCREEN NEGATIVE (NEGATIVE); PHENCYCLIDINE URINE SCREEN NEGATIVE (NEGATIVE)
[2024-11-10] MEDS ORDERED: HYDROCODONE/ACETAMINOPHEN 5/325MG TABLET PO ONE (00:15)
[2024-11-10] MEDS: ACETAMINOPHEN 325MG TABLET PO ONE (00:21)
[2024-11-10 00:28] LABS: BASOPHILS % 0.6 % (0.0-2.0); EOSINOPHILS % 1.3 % (0.0-5.0); HEMATOCRIT. 36.9 % (42.0-52.0); HEMOGLOBIN. 12.2 g/dL (14.0-18.0); LYMPHOCYTES % 23.9 % (20.0-50.0); MEAN CORPUSCULAR HEMOGLOBIN 29.3 pg (28.0-32.0); MEAN CORPUSCULAR HGB CONC 33.2 g/dL (31.0-37.0); MEAN CORPUSCULAR VOLUME 88.2 fL (80.0-94.0); MEAN PLATELET VOLUME 8.8 fl (7.4-10.4); MONOCYTES % 9.3 % (2.0-8.0); NEUTROPHILS % 64.9 % (40.0-76.0); PLATELET 312 x1000/uL (130-400); RED BLOOD CELL COUNT 4.18 mill/uL (4.7-6.1); RED CELL DISTRIBUTION WIDTH 15.6 % (11.6-14.6); WHITE BLOOD COUNT 7.3 x1000/uL (4.5-11.0)
[2024-11-10 00:59] LABS: CARBON DIOXIDE 30 mEq/L (21-32); CHLORIDE 105 mEq/L (98-107); POTASSIUM 3.9 mEq/L (3.5-5.1); SODIUM 142 mEq/L (136-145)
[2024-11-10 01:00] LABS: CALCIUM 8.8 mg/dL (8.7-10.4)
[2024-11-10 01:05] LABS: ETHANOL BLOOD < 10 mg/dL (<10); GLUCOSE 116 mg/dL (70-105); UREA NITROGEN BLOOD 12 mg/dL (9-23)
[2024-11-10 01:06] LABS: ACETAMINOPHEN < 2 ug/mL (10-30); ALANINE AMINOTRANSFERASE 31 IU/L (10-49); ASPARTATE AMINOTRANSFERASE 20 IU/L (<34)
[2024-11-10 01:07] LABS: ALBUMIN 4.4 g/dL (3.2-4.8); BILIRUBIN DIRECT < 0.1 mg/dL (<=3.0); BILIRUBIN TOTAL 0.2 mg/dL (0.1-1.0); PROTEIN TOTAL 7.2 g/dL (6.0-8.3)
[2024-11-10] MEDS: BACITRACIN 14GM TUBE TOP ONE (01:42)
[2024-11-10] MEDS ORDERED: DIPHENHYDRAMINE 50MG/ML VIAL IV ONE (03:30)
[2024-11-10] MEDS: DIPHENHYDRAMINE 50MG/ML VIAL IM PRN (03:41)
[2024-11-10] MEDS: ONDANSETRON 4MG ODT PO ONE (03:42)
[2024-11-10] MEDS: LORAZEPAM 1MG TABLET PO ONE (10:44)
[2024-11-10] MEDS: KETOROLAC 15MG/ML VIAL IM ONE (15:30)
[2024-11-10] MEDS ORDERED: OLANZAPINE 5MG TABLET PO SCH (18:15)
[2024-11-11] MEDS: ACETAMINOPHEN 325MG TABLET PO ONE (01:24)
[2024-11-11] MEDS: FLUOXETINE HCL 10 MG CAPSULE PO SCH (09:25)
[2024-11-11] MEDS: LISINOPRIL 40MG TABLET PO SCH (09:45)
[2024-11-11] MEDS: BISACODYL 10MG SUPP PR ONE (16:24)
[2024-11-11] MEDS: CLONIDINE 0.1MG TABLET PO ONE (20:02)
[2024-11-11 20:40] VITALS: BP 157/92; PULSE 74; RESP 16; TEMP 36.4; O2SAT 95
[2024-11-11] MEDS ORDERED: ATORVASTATIN CALCIUM 40MG TABLET PO SCH (21:00)
== END 2024-11-11 21:03 ==
LOC: ER 22:24
DX: S50.812A Abrasion of left forearm, initial encounter (principal); R45.851 Suicidal ideations; I10 Essential (primary) hypertension; Z86.73 Personal history of transient ischemic attack (TIA), and cerebral infarction without residual deficits; Z79.899 Other long term (current) drug therapy; Z88.5 Allergy status to narcotic agent; Z20.822 Contact with and (suspected) exposure to COVID-19; X58.XXXA Exposure to other specified factors, initial encounter; Y93.89 Activity, other specified; Y92.89 Other specified places as the place of occurrence of the external cause; Y99.8 Other external cause status
CPT/HCPCS: 80076; 80305; 80048; 81003; 80307; 80329; 80320; 83690; 85025; 36415; 99285; 87426; 96372; J7030; Q0162; J1200; J1885; G0480; J0131